=== PATIENT | female | born 1965 | race Caucasian/White ===

== ENCOUNTER → 2020-06-25 | Outpatient (CLI) | payer BC ==
[2020-06-25 12:18] VITALS: BP 138/78; PULSE 87; RESP 18; TEMP 98.6
--- NOTE | 2020-06-25 12:52 | P.GSHP ---
History of Present Illness H&P Date: 06/25/20 Chief Complaint: Mass under right arm Randa is a 55-year-old white female seen in consultation for Dr. Richmond regarding a palpable mass under her right arm. She underwent a bilateral mammogram on 420 621 which revealed 2 nodular densities in the upper outer margin of the right breast. A nodular density in the upper outer margin of the left breast was also noted. She subsequently underwent an ultrasound of the right breast which revealed a 2.3 cm lymph node with eccentric cortical thickening on the right for which biopsy was recommended. Targeted ultrasound of the left breast did not show any worrisome solid or cystic masses however repeat spot views of the left breast were recommended. [place] [address]. This was felt to be probably benign BIRADS 3 and repeat left breast mammogram and ultrasound in 6 months is recommended. Prior to the radiographic evaluation the patient had not noted any adenopathy or lesions of concern in her breast. The patient does not note any pain in her breast. Approximately 5 days ago the patient noted an area of erythema in the right breast which was warm and was started on an antibiotic. This has since subsided. The antibiotic was Keflex. The patient denies any nipple discharge. She has never had any surgery in either breast. She does not report any recent trauma to the breast. The right breast most likely had a recent infection which is being treated with antibiotics. Randa had the Dre and Dre Covid vaccine on May 18 in her left arm. Caffiene: 1 cup/day nicotine: none, stopped in 2008 used to smoke 1 to 1/2 PPD chocolate: several times a week Family history: mother: breast cancer maternal aunt: cancer ? type maternal aunt: of cancer ? type Hormonal History: menarche: 11 G0 menopause: 51 BCP: < 1 year hormones: none Surgical history: Bone chip removed right foot Bilateral cataracts Medical history: Pain Social history: Nicotine: Negative stopped in 2008 Alcohol: several times a week drugs: Marijuana rarely - Constitutional Constitutional: Denies chills, Denies fever - EENT Comment: bilateral cataract surgery Ears: deny: decreased hearing, tinnitus Ears, nose, mouth and throat: Denies headache, Denies sore throat - Breasts Breasts: bilateral: as per HPI - Cardiovascular Cardiovascular: Denies chest pain, Denies shortness of breath - Respiratory Respiratory: Denies cough, Denies 7 - Gastrointestinal Gastrointestinal: Denies abdominal pain, Denies diarrhea, Denies nausea, Denies vomiting - Genitourinary (Female) Genitourinary: Denies dysuria, Denies hematuria - Menstruation Menstruation: Reports postmenopausal - Musculoskeletal Comment: back pain Musculoskeletal: Denies myalgias - Integumentary Integumentary: Denies pruritus, Denies rash - Neurological Neurological: Denies numbness, Denies weakness - Psychiatric Psychiatric: Denies anxiety, Denies depression - Endocrine Endocrine: Denies fatigue, Denies weight change - Hematologic/Lymphatic Comment: baby aspirin - Allergic/Immunologic Allergic/Immunologic: Reports as per HPI Past Medical History Past Medical History: No Reported History History of Any Multi-Drug Resistant Organisms: None Reported Additional Past Surgical History / Comment(s): [facility] eye surgery, rt foot surgery Past Anesthesia/Blood Transfusion Reactions: No Reported Reaction Smoking Status: Former smoker Past Alcohol Use History: Occasional Additional Past Alcohol Use History / Comment(s): Quit 2008 Past Drug Use History: Marijuana - Past Family History Mother Family Medical History: Cancer Additional Family Medical History / Comment(s): breast Medications and Allergies Home Medications Medication Instructions Recorded Confirmed Type Ascorbic Acid [Vitamin C] 1,000 mg PO DAILY 06/23/20 06/25/20 History Aspirin 81 mg PO DAILY 06/23/20 06/25/20 History Cholecalciferol (Vitamin D3) 4,000 unit PO DAILY 06/23/20 06/25/20 History [Vitamin D3 (4,000 Iu)] Zinc 50 mg PO DAILY 06/23/20 06/25/20 History Allergies Allergy/AdvReac Type Severity Reaction Status Date / Time No Known Allergies Allergy Verified 06/25/20 12:15 Surgical - Exam Vital Signs Temp Pulse Resp BP Pulse Ox 98.6 F 87 18 138/78 97 06/25/20 12:16 06/25/20 12:16 06/25/20 12:16 06/25/20 12:16 06/25/20 12:16 BMI 34.9 - General no distress - Eyes normal ocular movement - ENT normal pinna, normal mucosa - Neck no masses, trachea midline - Respiratory normal expansion, normal respiratory effort, clear to auscultation - Cardiovascular Rhythm: regular Heart Sounds: normal: S1, S2 - Abdomen Abdomen: soft - Integumentary normal turgor - Musculoskeletal brace on right knee - Psychiatric oriented to time, oriented to person, oriented to place, speech is normal, memory intact Breast Exam: BRA: 42DD inspection: Right breast larger than left breast, grade 3 ptosis bilateral Palpation: Right breast: Multi-positional exam fibrocystic changes, no discrete dominant mass or nodule of concern appreciated; mild erythema right breast at 12 o'clock position which is improved on antibiotics as per patient Right axilla: No definite adenopathy/axillary breast tissue appreciated Left breast: Multi-positional exam fibrocystic changes no dominant masses or nodules of concern Left axilla: No definite adenopathy of concern Results Mammogram and ultrasound reviewed with Dr. Pride Assessment and Plan Assessment: Impression: 1. Right breast enlarged lymph node on ultrasound for which ultrasound-guided core biopsy is recommended 2. Fibrocystic breast changes 3. Erythema right breast improving on antibiotics no discrete abscess or lesion to drain 4. Positive family history of cancer 5. Back pain Plan: 1. Ultrasound-guided core biopsy right breast lymph node 2. Repeat left breast mammogram and ultrasound in 6 months 3. Follow-up after ultrasound-guided core biopsy Cc: Dr. Richmond
== END ==
LOC: WWCWWP 11:34
PROVIDERS: ATTEND Surgery
DX: R59.9 Enlarged lymph nodes, unspecified (principal); N60.12 Diffuse cystic mastopathy of left breast; N60.11 Diffuse cystic mastopathy of right breast; L53.8 Other specified erythematous conditions; M54.9 Dorsalgia, unspecified; Z80.3 Family history of malignant neoplasm of breast; Z87.891 Personal history of nicotine dependence

== ENCOUNTER 2020-07-06 07:50 | Day surgery (SDC) | payer BC ==
[2020-07-06 08:34] VITALS: BP 145/70; PULSE 76; RESP 16
--- NOTE | 2020-07-06 10:44 | US ---
Discontinued fine-needle aspiration biopsy Ultrasound performed for procedure planning purposes and correlated to ultrasound from outside [facility] 06/11/2020 Case was reviewed and discussed with referring clinician. Based on the findings it is elected to perform short interval follow-up ultrasound and follow-up with referring surgeon in 3 months time, probably benign, BI-RADS 3. Lesions identified on prior exam dim inished in size and conspicuity. IMPRESSION: Discontinued biopsy, as above
== END 2020-07-06 10:05 | disposition home or self-care (01) ==
LOC: RADPROMAIN 07:50
PROVIDERS: ATTEND Surgery
DX: R59.0 Localized enlarged lymph nodes (principal); Z53.9 Procedure and treatment not carried out, unspecified reason
CPT/HCPCS: 76536